=== PATIENT | female | born 1970 | race Caucasian/White ===

== ENCOUNTER 2016-07-25 11:48 | Observation (INO) | payer BC ==
--- NOTE | 2016-07-25 13:01 | PDOC ---
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 The patient is also complaining of intermittent numbness to her right arm for the past few days but denies any pain. She reports the numbness to her arm is not position based and comes and goes randomly. The patient denies any trauma or injury to her arm. She also c/o occ. R lower lip numbness that comes and goes randomly. The patient reports a headache, but denies neck pain The patient denies fever, chills The patient denies vomiting, diarrhea The patient denies chest pain, palpitations, SOB She denies any other complaints at this time, and the remainder the review of systems is negative Surgical: gastric bypass (2002) hernia removal (2003) Social: No toxic habits reported <SophynanySusanna - Last Filed: 07/25/16 13:06> <Cathie Curtis - Last Filed: 07/25/16 16:59> - General Chief Complaint: Lightheaded Stated Complaint: DIZZINESS, SYNCOPE, RT SIDE NUMBNESS Time Seen by Provider: 07/25/16 12:43 Past History <MargieSusanna - Last Filed: 07/25/16 13:58> - Past Medical History Anemia: Yes Cardiac Disorders: Yes (tachycardia) Diabetes: Yes (type II) - Surgical History Abdominal Surgery: Yes (tubal ligation abd hernia repair) GI Surgery: Yes (gastric bypass) - Immunization History Immunization Up to Date: Yes (no flu) - Psycho/Social/Smoking Cessation Hx Anxiety: No Suicidal Ideation: No Smoking History: Never smoked Have you smoked in the past 12 months: No Information on smoking cessation initiated: No Hx Alcohol Use: No Drug/Substance Use Hx: No Substance Use Type: None <Cathie Curtis - Last Filed: 07/25/16 16:59> - Past Medical History Allergies/Adverse Reactions: Allergies Allergy/AdvReac Type Severity Reaction Status Date / Time hydrocodone Allergy Rash Verified 07/25/16 11:50 Home Medications: Ambulatory Orders Cholecalciferol (Vitamin D3) [Vitamin D3 -] 400 unit PO DAILY 07/25/16 Folic Acid - 1 mg PO DAILY 07/25/16 Iron 18 mg PO DAILY 07/25/16 Metoprolol Tartrate [Lopressor -] 25 mg PO BID 07/25/16 Review of Systems - Review of Systems Able to Perform ROS?: Yes Comments:: 07/25/16 13:58 Remainder of the review of systems is negative - HPI 12 point review of systems is as per history of present illness and otherwise negative - ROS <Susanna Hanson - Last Filed: 07/25/16 13:58> *Physical Exam - Vital Signs Last Vital Signs Temp Pulse Resp BP Pulse Ox 97.9 F 104 H 20 128/86 99 07/25/16 11:52 07/25/16 11:52 07/25/16 11:52 07/25/16 11:52 07/25/16 11:52 <Susanna Hanson - Last Filed: 07/25/16 13:58> - Vital Signs Last Vital Signs Temp Pulse Resp BP Pulse Ox 97.9 F 104 H 20 128/86 99 07/25/16 11:52 07/25/16 11:52 07/25/16 11:52 07/25/16 11:52 07/25/16 11:52 - Physical Exam Comments: 07/25/16 13:03 Physical exam Last Vital Signs Temp Pulse Resp BP Pulse Ox 97.9 F 104 H 20 128/86 99 07/25/16 11:52 07/25/16 11:52 07/25/16 11:52 07/25/16 11:52 07/25/16 11:52 GENERAL: The patient is awake, alert, and fully oriented, and in no apparent distress. HEAD: Normal with no signs of trauma. EYES: Pupils equal, round and reactive to light, extraocular movements intact, sclera anicteric, conjunctiva are normal. No obvious nystagmus is noted ENT: nares patent, oropharynx clear without exudates. Moist mucous membranes. NECK: Normal range of motion, supple No C-spine tenderness Rapid change in head position reproduces the symptoms LUNGS: Breath sounds equal, clear to auscultation bilaterally. No wheezes, and no crackles. HEART: Regular rate and rhythm, normal S1 and S2 without murmur, rub or gallop. ABDOMEN: Soft, nontender, normoactive bowel sounds. No guarding, no rebound. No masses appreciated. EXTREMITIES: Normal range of motion, no edema. No clubbing or cyanosis. No cords, erythema, or tenderness. NEURO: Mental status: The patient is oriented x3. Cranial nerves: Cranial nerves II through XII are intact Motor: The upper extremities are 5 over 5 in all muscle groups. The lower extremities are 5 over 5 in all muscle groups. Sensation: Sensation is intact to light touch throughout. Mild decreased sensation in the right lower lip Cerebellar: Sestqh-tdlknk-ysby is normal in both upper extremities. Heel-knee- yoo is normal in both lower extremities. Gait: Normal gait PSYCH: Normal mood, normal affect. SKIN: Warm, Dry, <Cathie Curtis - Last Filed: 07/25/16 16:59> ED Treatment Course - LABORATORY CBC & Chemistry Diagram: 07/25/16 13:30 07/25/16 13:30 <Susanna Hanson - Last Filed: 07/25/16 13:58> - LABORATORY CBC & Chemistry Diagram: 07/25/16 13:30 07/25/16 13:30 <Cathie Curtis - Last Filed: 07/25/16 16:59> Medical Decision Making - Medical Decision Making 07/25/16 12:59 45-year-old female with a past medical history of tachycardia (SVT) on metoprolol, vitamin D deficiency, borderline DM, and iron folic and B 12 deficiency anemia She also has a prior gastric bypass in 2002, and has post bypass dumping syndrome, as well as a post yesterday bypass hernia repair in 2003 Patient complains of 3 days of episodes of nausea associated with episodes of vertigo off and on She states that occasionally her right lower lip feels numb, and her right arm feels numb, and this comes and goes, but not clearly related to the vertigo episodes She does admit to headache, but denies any neck pain She admits to nausea, but denies any vomiting or diarrhea She denies any fevers or chills She denies any recent intercurrent illnesses She denies any chest pain or palpitations She denies any other complaints at this time 07/25/16 15:17 Laboratory Results - last 24 hr 07/25/16 07/25/16 07/25/16 13:30 13:30 13:55 WBC 9.1 RBC 4.84 Hgb 9.3 L Hct 30.7 L MCV 63.3 L MCHC 30.3 L RDW 20.4 H Plt Count 435 H MPV 8.1 Sodium 140 Potassium 4.2 Chloride 104 Carbon Dioxide 27 Anion Gap 9 BUN 10 Creatinine 0.7 Creat Clearance w eGFR > 60 Random Glucose 90 Calcium 9.1 Magnesium 2.2 Total Bilirubin 0.3 AST 8 L ALT 16 Alkaline Phosphatase 114 Creatine Kinase 36 Troponin I < 0.02 Total Protein 7.5 Albumin 3.6 Urine HCG, Qual Negative Patient with a history of chronic anemia as noted due to folate, B-12, and iron deficiency, but she states that she usually runs in the 10.5-11 range and this is more anemic than usual She has not seen a primary care doctor recently, and has not had her B-12 shot or Fe or other primary care supplements ordered recently EKG Normal sinus rhythm 79, normal axis Normal AV and IV conduction time Normal QTC Normal EKG 07/25/16 16:40 CT scan of the head without-NAD 07/25/16 16:58 case d/w Dr Hannon - given the hx of arm numbness and lip numbness, will place in observation, get MRI and further Neuro w/u case d/w hospitalist - will admit obs <Cathie Curtis - Last Filed: 07/25/16 16:59> *DC/Admit/Observation/Transfer - Attestations Scribe Attestion: 07/25/16 13:06 Documentation prepared by Susanna Hanson, acting as medical billing supervisor for Cathie Curtis MD/DO. <Susanna Hanson - Last Filed: 07/25/16 13:58> - Discharge Dispostion Admit: Yes <Cathie Curtis - Last Filed: 07/25/16 16:59> Diagnosis at time of Disposition: Vertigo, Numbness
[2016-07-25] MEDS ORDERED: MECLIZINE HCL 25 MG TABLET (FP) PO ONE (13:02)
[2016-07-25] MEDS ORDERED: ONDANSETRON 4 MG/2 ML VIAL IVPB ONE (13:03)
[2016-07-25] MEDS ORDERED: ONDANSETRON 4 MG/2 ML VIAL ONE (13:24)
[2016-07-25] MEDS ORDERED: MECLIZINE HCL 25 MG TABLET (FP) ONE (13:24)
[2016-07-25 13:42] LABS: MCHC 30.3 g/dl (32.0-36.0); MEAN CELL VOLUME 63.3 fl (80-96); MEAN PLT VOLUME 8.1 fl (7.5-11.1); PLATELET COUNT 435 K/MM3 (134-434); RDW 20.4 % (11.6-15.6); WHITE BLOOD COUNT 9.1 K/mm3 (4.0-10.0)
[2016-07-25 13:48] LABS: MCH 19.2 pg (25.7-33.7)
[2016-07-25 14:08] LABS: ALBUMIN 3.6 g/dl (3.4-5.0); ANION GAP 9 (8-16); BILIRUBIN,TOTAL 0.3 mg/dL (0.2-1.0); CALCIUM 9.1 mg/dL (8.5-10.1); CO2 27 mmol/L (21-32); CREATININE 0.7 mg/dL (0.55-1.02); GLUCOSE,RANDOM 90 mg/dL (74-106); MAGNESIUM 2.2 mg/dL (1.8-2.4); SGOT/AST 8 U/L (15-37); SGPT/ALT 16 U/L (12-78); TOT PROT 7.5 g/dl (6.4-8.2)
[2016-07-25 14:11] LABS: ALK PHOS 114 U/L (45-117); TROPONIN I < 0.02 ng/ml (0.00-0.05)
[2016-07-25 15:38] LABS: ANISOCYTOSIS 2+; MICROCYTOSIS 3+
[2016-07-25 15:39] LABS: HYPOCHROMIA 1+
[2016-07-25 15:40] LABS: SPHEROCYTE 1+
--- NOTE | 2016-07-25 16:07 | EKG ---
Test Reason : Blood Pressure : / mmHG Vent. Rate : 079 BPM Atrial Rate : 079 BPM P-R Int : 134 ms QRS Dur : 070 ms QT Int : 390 ms P-R-T Axes : 053 011 032 degrees QTc Int : 447 ms NORMAL SINUS RHYTHM NORMAL ECG NO PREVIOUS ECGS AVAILABLE Confirmed by RADHA MOSS MD ([id number]) on 07/25/2016 4:06:54 PM Referred By: Confirmed By:RADHA MOSS MD
[2016-07-25] MEDS ORDERED: ACETAMINOPHEN 500 MG TABLET (FP) PO ONE (20:42)
--- NOTE | 2016-07-25 21:18 | HP ---
CHIEF COMPLAINT: dizziness/nausea PCP: none HISTORY OF PRESENT ILLNESS: This is a 45 year old female with a past medical history of SVT, vitamin D deficiency, borderline DM, iron, folic acid and B12 deficiency related to gastric bypass who presented to the ED with a complaint of nausea and dizziness x 3 days with intermittent vertigo and sensation of the room spinning. She also reports intermittent right arm and right lower lip numbness intermittently. The arm and lip numbness does not seem to correlate with the dizziness and has been occurring for approximately one month. The patient does report headache associated with the dizziness. ER course was notable for: (1) unremarkable head CT (2) dizziness improved with zofran and meclizine Recent Travel: none PAST MEDICAL HISTORY: SVT vitamin D deficiency borderline DM iron, folic acid and B12 deficiency related to gastric bypass cervical disc herniation, pt thinks maybe C2 Lumbar disc herniation PAST SURGICAL HISTORY: Gastric bypass 2002 tubal ligation hernia r/t gastric bypass repair 2003 Social History: Smoking: pt denies Alcohol: pt denies Drugs: pt denies Family History: mother alive with heart problems, ?maybe [place] father alive and well pat grandmother CVA in her 70s mat grandmother CVA and MO in her 70s Allergies hydrocodone Allergy (Verified 07/25/16 11:50) Rash HOME MEDICATIONS: 3 Medication Instructions Recorded Cholecalciferol (Vitamin D3) 400 unit PO DAILY 07/25/16 [Vitamin D3 -] Folic Acid - 1 mg PO DAILY 07/25/16 Iron 18 mg PO DAILY 07/25/16 Metoprolol Tartrate [Lopressor -] 25 mg PO BID 07/25/16 REVIEW OF SYSTEMS CONSTITUTIONAL: Absent: fever, chills, diaphoresis, generalized weakness, malaise, loss of appetite, weight change HEENT: Absent: rhinorrhea, nasal congestion, throat pain, throat swelling, difficulty swallowing, mouth swelling, ear pain, eye pain, visual changes CARDIOVASCULAR: Absent: chest pain, syncope, palpitations, irregular heart rate, lightheadedness , peripheral edema RESPIRATORY: Absent: cough, shortness of breath, dyspnea with exertion, orthopnea, wheezing, stridor, hemoptysis GASTROINTESTINAL: Present: nausea Absent: abdominal pain, abdominal distension, vomiting, diarrhea, constipation, melena, hematochezia GENITOURINARY: Absent: dysuria, frequency, urgency, hesitancy, hematuria, flank pain, genital pain MUSCULOSKELETAL: Absent: myalgia, arthralgia, joint swelling, back pain, neck pain SKIN: Absent: rash, itching, pallor HEMATOLOGIC/IMMUNOLOGIC: Absent: easy bleeding, easy bruising, lymphadenopathy, frequent infections ENDOCRINE: Absent: unexplained weight gain, unexplained weight loss, heat intolerance, cold intolerance NEUROLOGIC: Present: headache, dizziness, arm and facial numbness Absent: focal weakness or paresthesias, unsteady gait, seizure, mental status changes, bladder or bowel incontinence PSYCHIATRIC: Absent: anxiety, depression, suicidal or homicidal ideation, hallucinations. PHYSICAL EXAMINATION Vital Signs - 24 hr 3 07/25/16 07/25/16 11:52 17:25 Temperature 97.9 F 98.4 F Pulse Rate 104 H Pulse Rate [ 90 Right] Respiratory 20 16 Rate Blood Pressure 128/86 Blood Pressure 117/72 [Arm] O2 Sat by Pulse 99 99 Oximetry (%) GENERAL: Awake, alert, and fully oriented, in no acute distress. HEAD: Normal with no signs of trauma. EYES: Pupils equal, round and reactive to light, extraocular movements intact, sclera anicteric, conjunctiva clear. No lid lag. EARS, NOSE, THROAT: Ears normal, nares patent, oropharynx clear without exudates. Moist mucous membranes. NECK: Normal range of motion, supple without lymphadenopathy, JVD, or masses. LUNGS: Breath sounds equal, clear to auscultation bilaterally. No wheezes, and no crackles. No accessory muscle use. HEART: Regular rate and rhythm, normal S1 and S2 without murmur, rub or gallop. ABDOMEN: Soft, nontender, not distended, normoactive bowel sounds, no guarding, no rebound, no masses. No hepatomegaly or splenomegaly. MUSCULOSKELETAL: Normal range of motion at all joints. No bony deformities or tenderness. No CVA tenderness. UPPER EXTREMITIES: 2+ pulses, warm, well-perfused. No cyanosis. No clubbing. Cap refill <2 seconds. No peripheral edema. LOWER EXTREMITIES: 2+ pulses, warm, well-perfused. No calf tenderness. No peripheral edema. NEUROLOGICAL: Cranial nerves II-XII intact. Normal speech. Normal gait. no nystagmus or dizziness on linnea-hallpike maneuver. Muscle strength 5/5 all extremities. light touch sensation intact all extremities PSYCHIATRIC: Cooperative. Good eye contact. Appropriate mood and affect. SKIN: Warm, dry, normal turgor, no rashes or lesions noted. Laboratory Results - last 24 hr 3 07/25/16 07/25/16 07/25/16 13:30 13:30 13:55 WBC 9.1 RBC 4.84 Hgb 9.3 L Hct 30.7 L MCV 63.3 L MCHC 30.3 L RDW 20.4 H Plt Count 435 H MPV 8.1 Hypochromic-Microcytic 1+ Anisocytosis 2+ Microcytosis 3+ Spherocytes 1+ Sodium 140 Potassium 4.2 Chloride 104 Carbon Dioxide 27 Anion Gap 9 BUN 10 Creatinine 0.7 Creat Clearance w eGFR > 60 Random Glucose 90 Calcium 9.1 Magnesium 2.2 Total Bilirubin 0.3 AST 8 L ALT 16 Alkaline Phosphatase 114 Creatine Kinase 36 Troponin I < 0.02 Total Protein 7.5 Albumin 3.6 Urine HCG, Qual Negative Head CT: Impression: No evidence of acute intracranial hemorrhage, edema, midline shift, mass effect or skull fracture. No CT evidence of acut territorial infarction. ECG: NSR, rate 79, no ST/T changes ASSESSMENT/PLAN: 45yF with PMH of SVT, vitamin D deficiency, borderline DM, iron, folic acid and B12 deficiency related to gastric bypass presented with dizziness and nausea. She is being admitted for further workup and observation. Dizziness - MRI brain done, results pending - neurology consult - likely related to vertigo. Trial of meclizine Arm and lip numbness/parasthesia - consider MRI cspine - neurology consult - CT head negative, unlikely acute CVA given length of time of symptoms and intermittent nature. Anemia (B12, iron and folate) - cont home supplements - b12 and folate levels - B12 injection in AM after B12 level, pt states last received over 1 year ago SVT - cont home metoprolol; asymptomatic with same FEN - no IVF, pt tolerating po - repeat bmp in am, stable at present - regular diet. Dispo: Pt currently requires inpatient observation for her emergent condition. Visit type - Emergency Visit Emergency Visit: Yes ED Registration Date: 07/25/16 Care time: The patient presented to the Emergency Department on the above date and was hospitalized for further evaluation of their emergent condition. - New Patient This patient is new to me today: Yes Date on this admission: 07/25/16 - Critical Care Critical Care patient: No
[2016-07-25] MEDS: METOPROLOL TARTRATE 25 MG TABLET (FP) PO SCH (21:23)
[2016-07-25] MEDS: MECLIZINE HCL 25 MG TABLET (FP) PO PRN (21:34)
[2016-07-25 23:55] VITALS: BMI 47.0
[2016-07-26 07:22] LABS: BASOPHIL 0.7 % (0-2.0); EOSINOPHIL 2.2 % (0-4.5); MCHC 31.2 g/dl (32.0-36.0); MEAN CELL VOLUME 62.8 fl (80-96); MEAN PLT VOLUME 9.1 fl (7.5-11.1); NEUTROPHILS 48.5 % (42.8-82.8); PLATELET COUNT 386 K/MM3 (134-434); RDW 20.7 % (11.6-15.6); WHITE BLOOD COUNT 6.1 K/mm3 (4.0-10.0)
[2016-07-26 07:33] LABS: MCH 19.6 pg (25.7-33.7)
[2016-07-26 07:41] LABS: CALCIUM 8.5 mg/dL (8.5-10.1); CREATININE 0.7 mg/dL (0.55-1.02); PHOSPHOROUS 3.4 mg/dL (2.5-4.9)
[2016-07-26 08:37] VITALS: BP 100/63; PULSE 87; TEMP 97.9
[2016-07-26] MEDS ORDERED: CYANOCOBALAMIN (VITAMIN B-12) 1000 MCG/1 ML VIAL IM ONE (10:00)
[2016-07-26] MEDS ORDERED: FOLIC ACID 1 MG TABLET (FP) PO SCH (10:00)
[2016-07-26] MEDS ORDERED: FERROUS SO4 325 MG TABLET (FP) PO SCH (10:00)
[2016-07-26] MEDS ORDERED: CHOLECALCIFEROL (VITAMIN D3) 400 UNIT TABLET (FP) PO SCH (10:00)
--- NOTE | 2016-07-26 10:03 | DS ---
Physical Exam: SUBJECTIVE: Patient seen and examined OBJECTIVE: Vital Signs Period Temp Pulse Resp BP Sys/Gonzalez Pulse Ox Last 24 Hr 97.9 F-98.7 F 81-120 18-20 90-118/47-74 99-100 PHYSICAL EXAM GENERAL: The patient is awake, alert, and fully oriented, in no acute distress. HEAD: Normal with no signs of trauma. EYES: PERRL, extraocular movements intact, sclera anicteric, conjunctiva clear. ENT: Ears normal, nares patent, oropharynx clear without exudates, moist mucous membranes. NECK: Trachea midline, full range of motion, supple. LUNGS: Breath sounds equal, clear to auscultation bilaterally, no wheezes, no crackles, no accessory muscle use. HEART: Regular rate and rhythm, S1, S2 without murmur, rub or gallop. ABDOMEN: Soft, nontender, nondistended, normoactive bowel sounds, no guarding, no rebound, no hepatosplenomegaly, no masses. EXTREMITIES: 2+ pulses, warm, well-perfused, no edema. NEUROLOGICAL: Cranial nerves II through XII grossly intact. Normal speech, gait not observed. PSYCH: Normal mood, normal affect. SKIN: Warm, dry, normal turgor, no rashes or lesions noted. LABS Laboratory Results - last 24 hr 07/26/16 07/26/16 07/26/16 06:00 06:00 06:00 WBC 6.1 D RBC 4.44 Hgb 8.7 L Hct 27.9 L MCV 62.8 L MCHC 31.2 L RDW 20.7 H Plt Count 386 MPV 9.1 D Neutrophils % 48.5 Lymphocytes % 41.4 H Monocytes % 7.2 Eosinophils % 2.2 Basophils % 0.7 Sodium 139 Potassium 4.0 Chloride 102 Carbon Dioxide 27 Anion Gap 10 BUN 14 D Creatinine 0.7 POC Glucometer Random Glucose 94 Calcium 8.5 Phosphorus 3.4 Vitamin B12 326 Serum Folate 13 07/26/16 07:16 WBC RBC Hgb Hct MCV MCHC RDW Plt Count MPV Neutrophils % Lymphocytes % Monocytes % Eosinophils % Basophils % Sodium Potassium Chloride Carbon Dioxide Anion Gap BUN Creatinine POC Glucometer 96 Random Glucose Calcium Phosphorus Vitamin B12 Serum Folate HOSPITAL COURSE: Date of Admission:07/25/16 Date of Discharge: 07/26/16 Pre hospital course This is a 45 year old female with a past medical history of SVT, vitamin D deficiency, borderline DM, iron, folic acid and B12 deficiency related to gastric bypass who presented to the ED with a complaint of nausea and dizziness x 3 days with intermittent vertigo and sensation of the room spinning. She also reports intermittent right arm and right lower lip numbness intermittently. The arm and lip numbness does not seem to correlate with the dizziness and has been occurring for approximately one month. The patient does report headache associated with the dizziness. ER course (1) CT head unremarkable (2) dizziness improved with zofran and meclizine Subsequent hospital course Patient asymptomatic this morning. Seen and evaluated by neurology. MRI completed and reviewed and without acute changes. Neuropathic sensations may be cervical radiculopathy and would benefit from EMG outpatient. Patient also with sleep difficulty and may benefit from sleep study. Will follow up as outpatient with Dr. Hannon. Minutes to complete discharge: 35 Discharge Summary Reason For Visit: NUMBNESS; VERTIGO Current Active Problems Numbness (Acute) Vertigo (Acute) - Instructions Diet, Activity, Other Instructions: A prescription for meclizine has been sent to your pharmacy. You should take this medication as directed for dizziness. You should NOT be driving a motor vehicle while taking this medication. Return to the emergency department for any new or worsening symptoms. Referrals: Hong Jimenez MD [Staff Physician] - 2 Weeks Josue Hannon MD [Staff Physician] - Disposition: HOME - Home Medications Comprehensive Discharge Medication List: Ambulatory Orders Cholecalciferol (Vitamin D3) [Vitamin D -] 400 unit PO DAILY 07/25/16 Folic Acid - 1 mg PO DAILY 07/25/16 Iron 18 mg PO DAILY 07/25/16 Metoprolol Tartrate [Lopressor -] 25 mg PO BID 07/25/16 Meclizine HCl [Antivert -] 25 mg PO Q6H PRN #10 tablet 07/26/16 This patient is new to me today: Yes Date on this admission: 07/26/16 Emergency Visit: Yes ED Registration Date: 07/25/16 Care time: The patient presented to the Emergency Department on the above date and was hospitalized for further evaluation of their emergent condition. Critical Care patient: No - Discharge Referral Referred to [facility] Yes Physician Referral: Hong Anderson MD ([facility])
--- NOTE | 2016-07-26 10:32 | CONSULT ---
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 The patient was also complaining of intermittent numbness to her right arm for the past few days but denies any pain. I spoke with Dr. Ordonez yesterday and the patient had CT head which showed no acute changes. Decided to admit for MRI brain as she has SVT and rule out posterior CVA. MRI completed and reviewed and without acute changes. Neuropathic sensations may be cervical radic and would benefit from EMG outpatient. Patient also with sleep difficulty and may benefit from sleep study. - General Chief Complaint: Lightheaded Stated Complaint: DIZZINESS, SYNCOPE, RT SIDE NUMBNESS Time Seen by Provider: 07/25/16 12:43 Past History - Past Medical History Anemia: Yes Cardiac Disorders: Yes (tachycardia) Diabetes: Yes (type II) - Surgical History Abdominal Surgery: Yes (tubal ligation abd hernia repair) GI Surgery: Yes (gastric bypass) - Immunization History Immunization Up to Date: Yes (no flu) - Psycho/Social/Smoking Cessation Hx Anxiety: No Suicidal Ideation: No Smoking History: Never smoked Have you smoked in the past 12 months: No Information on smoking cessation initiated: No Hx Alcohol Use: No Drug/Substance Use Hx: No Substance Use Type: None - Past Medical History Allergies/Adverse Reactions: Allergies Allergy/AdvReac Type Severity Reaction Status Date / Time hydrocodone Allergy Rash Verified 07/25/16 11:50 Home Medications: Ambulatory Orders Cholecalciferol (Vitamin D3) [Vitamin D3 -] 400 unit PO DAILY 07/25/16 Folic Acid - 1 mg PO DAILY 07/25/16 Iron 18 mg PO DAILY 07/25/16 Metoprolol Tartrate [Lopressor -] 25 mg PO BID 07/25/16 Review of Systems Remainder of the review of systems is negative - HPI 12 point review of systems is as per history of present illness and otherwise negative - ROS *Physical Exam - Vital Signs Last Vital Signs Temp Pulse Resp BP Pulse Ox 97.9 F 104 H 20 128/86 99 07/25/16 11:52 07/25/16 11:52 07/25/16 11:52 07/25/16 11:52 07/25/16 11:52 GENERAL: The patient is awake, alert, and fully oriented, and in no apparent distress. HEAD: Normal with no signs of trauma. EYES: Pupils equal, round and reactive to light, extraocular movements intact, sclera anicteric, conjunctiva are normal. No obvious nystagmus is noted ENT: nares patent, oropharynx clear without exudates. Moist mucous membranes. NECK: Normal range of motion, supple No C-spine tenderness Rapid change in head position reproduces the symptoms LUNGS: Breath sounds equal, clear to auscultation bilaterally. No wheezes, and no crackles. HEART: Regular rate and rhythm, normal S1 and S2 without murmur, rub or gallop. ABDOMEN: Soft, nontender, normoactive bowel sounds. No guarding, no rebound. No masses appreciated. EXTREMITIES: Normal range of motion, no edema. No clubbing or cyanosis. No cords, erythema, or tenderness. NEURO: Mental status: The patient is oriented x3. Cranial nerves: Cranial nerves II through XII are intact Motor: The upper extremities are 5 over 5 in all muscle groups. The lower extremities are 5 over 5 in all muscle groups. Sensation: Sensation is intact to light touch throughout. Mild decreased sensation in the right lower lip Cerebellar: Uyrxvc-odloyr-hjrn is normal in both upper extremities. Heel-knee- yoo is normal in both lower extremities. Gait: Normal gait PSYCH: Normal mood, normal affect. SKIN: Warm, Dry, CBCD WBC 6.1 K/mm3 (4.0-10.0) D 07/26/16 06:00 RBC 4.44 M/mm3 (3.60-5.2) 07/26/16 06:00 Hgb 8.7 GM/dL (10.7-15.3) L 07/26/16 06:00 Hct 27.9 % (32.4-45.2) L 07/26/16 06:00 MCV 62.8 fl (80-96) L 07/26/16 06:00 MCHC 31.2 g/dl (32.0-36.0) L 07/26/16 06:00 RDW 20.7 % (11.6-15.6) H 07/26/16 06:00 Plt Count 386 K/MM3 (134-434) 07/26/16 06:00 MPV 9.1 fl (7.5-11.1) D 07/26/16 06:00 CMP Sodium 139 mmol/L (136-145) 07/26/16 06:00 Potassium 4.0 mmol/L (3.5-5.1) 07/26/16 06:00 Chloride 102 mmol/L (98-107) 07/26/16 06:00 Carbon Dioxide 27 mmol/L (21-32) 07/26/16 06:00 Anion Gap 10 (8-16) 07/26/16 06:00 BUN 14 mg/dL (7-18) D 07/26/16 06:00 Creatinine 0.7 mg/dL (0.55-1.02) 07/26/16 06:00 Creat Clearance w eGFR > 60 (>60) 07/25/16 13:30 Calcium 8.5 mg/dL (8.5-10.1) 07/26/16 06:00 Total Bilirubin 0.3 mg/dL (0.2-1.0) 07/25/16 13:30 AST 8 U/L (15-37) L 07/25/16 13:30 ALT 16 U/L (12-78) 07/25/16 13:30 Alkaline Phosphatase 114 U/L (45-117) 07/25/16 13:30 Total Protein 7.5 g/dl (6.4-8.2) 07/25/16 13:30 Albumin 3.6 g/dl (3.4-5.0) 07/25/16 13:30 Imaging: CT head reviewed MRI brain reviewed Plan: 45 year old female with a past medical hx of tachycardia (SVT) on metoprolol, vitamin D deficiency, borderline DM, and 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 The patient was also complaining of intermittent numbness to her right arm for the past few days but denies any pain. I spoke with Dr. Ordonez yesterday and the patient had CT head which showed no acute changes. Decided to admit for MRI brain as she has SVT and rule out posterior CVA. MRI completed and reviewed and without acute changes. Neuropathic sensations may be cervical radic and would benefit from EMG outpatient. Patient also with sleep difficulty and may benefit from sleep study. Will follow up as outpatient. Doing well today and at baseline.
[2016-07-26] MEDS: METOPROLOL TARTRATE 25 MG TABLET (FP) PO SCH (10:54)
[2016-07-26] MEDS: MECLIZINE HCL 25 MG TABLET (FP) PO PRN (11:45)
== END 2016-07-26 12:59 | disposition home or self-care (01) ==
LOC: JER 11:48 → JERBED 17:27 → J7W 19:45
PROVIDERS: ADMIT Internal Medicine; ATTEND Nurse Practitioner Acute Care
DX: R42 Dizziness and giddiness (principal); R20.0 Anesthesia of skin; E55.9 Vitamin D deficiency, unspecified; D51.9 Vitamin B12 deficiency anemia, unspecified; Z98.84 Bariatric surgery status; M51.26 Other intervertebral disc displacement, lumbar region; I47.1 Supraventricular tachycardia
CPT/HCPCS: 36415; 70450-TC; 70551-TC; 80048; 80053; 82550; 82607; 82746; 83735; 84100; 84484; 84703; 85025; 85027; 93005; 93010; 99285-25; G0378

== ENCOUNTER 2017-06-25 09:52 | Emergency (ER) | payer OTHER, BC ==
[2017-06-25 10:00] VITALS: PULSE 80; TEMP 98.2; BMI 45.3
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
[2017-06-25] MEDS ORDERED: ACETAMINOPHEN 500 MG TABLET (FP) PO ONE (10:26)
[2017-06-25] MEDS ORDERED: ACETAMINOPHEN 325 MG TABLET (FP) ONE (10:44)
[2017-06-25] MEDS ORDERED: CYCLOBENZAPRINE HCL 10 MG TABLET (FP) PO ONE (14:06)
[2017-06-25] MEDS ORDERED: IBUPROFEN 400 MG TABLET (FP) PO ONE ×2 (14:06→14:29)
[2017-06-25] MEDS ORDERED: CYCLOBENZAPRINE HCL 10 MG TABLET (FP) ONE (14:29)
[2017-06-25 14:38] VITALS: BP 130/70
== END 2017-06-25 14:38 | disposition home or self-care (01) ==
LOC: JER 09:52
DX: S13.4XXA Sprain of ligaments of cervical spine, initial encounter (principal); V47.5XXA Car driver injured in collision with fixed or stationary object in traffic accident, initial encounter; Y92.414 Local residential or business street as the place of occurrence of the external cause; Y93.89 Activity, other specified; Y99.8 Other external cause status
CPT/HCPCS: 72125-TC; 73562-TC-LT; 73590-TC-LT; 84703; 99281-25

== ENCOUNTER 2019-07-07 15:49 | Inpatient (IN) | payer BC, OTHER ==
--- NOTE | 2019-07-07 16:10 | PDOC ---
Rapid Medical Evaluation Time Seen by Provider: 07/07/19 16:08 Medical Evaluation: Allergies Allergy/AdvReac Type Severity Reaction Status Date / Time hydrocodone Allergy Rash Verified 07/07/19 16:07 07/07/19 16:09 CC: sent for symptomatic anemia PE: HR- 116. +pallor Orders: Anemia w/u Patient will proceed to the ED for further evaluation. Discharge Disposition - Diagnosis Anemia - Referrals - Patient Instructions - Post Discharge Activity
[2019-07-07 16:12] VITALS: BMI 39.4
--- NOTE | 2019-07-07 17:38 | PDOC ---
History of Present Illness - General Chief Complaint: Lightheaded Stated Complaint: ANEMIC Time Seen by Provider: 07/07/19 16:08 - History of Present Illness Initial Comments: Natalie Worrell is a 48yo woman with a PMH of SVT, vitamin D deficiency, borderline DM, iron, folic acid and B12 deficiency s/p kia-en-y gastric bypass approximately 20 years ago, who presents reporting anemia after routine labs. She states that she had lost her insurance for over a year, and she recently went to re-establish care with a PMD. She had labs ordered at her initial appointment and was told that her hgb was 6, so she came to the ED for evaluation. She reports that she has a long history of anemia due to her gastric surgery and is on "a multivitamin" daily. She does not know if she has iron supplements. Ms Worrell does report long-standing fatigue, pallor, sensation of her heart racing, and FOWLER but these have not changed significantly over the past days or weeks. She denies any other symptoms, chest pain, difficulty breathing, fever/chills, current bleeding including heavy menstruation, melena, hematochezia, easy bruising, or other bleeding. Past History - Past Medical History Allergies/Adverse Reactions: Allergies Allergy/AdvReac Type Severity Reaction Status Date / Time hydrocodone Allergy Rash Verified 07/07/19 16:07 Home Medications: Ambulatory Orders Metoprolol Tartrate [Lopressor -] 50 mg PO TID 07/25/16 Diltiazem HCl [Diltiazem ER] 120 mg PO DAILY 07/07/19 Anemia: Yes Asthma: No Cancer: No Cardiac Disorders: Yes (tachycardia) CVA: No COPD: No CHF: No Dementia: No Diabetes: Yes (type II) GI Disorders: No Disorders: No HTN: No Hypercholesterolemia: No Liver Disease: No Seizures: No Thyroid Disease: No - Surgical History Abdominal Surgery: Yes (tubal ligation abd hernia repair) Appendectomy: No Cardiac Surgery: No Cholecystectomy: No GI Surgery: Yes (gastric bypass) Lung Surgery: No Neurologic Surgery: No Orthopedic Surgery: No - Immunization History Immunization Up to Date: (no flu) - Psycho Social/Smoking Cessation Hx Smoking History: Never smoked Have you smoked in the past 12 months: No Hx Alcohol Use: No Drug/Substance Use Hx: No Substance Use Type: None Hx Substance Use Treatment: No Review of Systems - Review of Systems Comments:: General: No fevers, no chills, no weight or appetite change, no malaise, + chronic fatigue HEENT: No changes in vision, no changes in hearing, no congestion, no sore throat CV: No chest pain, +no palpitations, no LE edema, +FOWLER Pulm: + occasional SOB, no cough, no wheezing GI: No nausea or vomiting, no change in bowel habits, no melena : No frequency, no urgency, no dysuria Musc: No back pain, no joint swelling, no recent injury Skin: No rash, no lesions, no erythema Endo: No excessive thirst, no heat/cold intolerance Heme: No unusual bruising or bleeding, no swollen glands Neuro: No syncope, no numbness/tingling, no focal weakness Vasc: No claudication Psych: No recent change in mood, no SI or HI *Physical Exam - Vital Signs Last Vital Signs Temp Pulse Resp BP Pulse Ox 98.2 F 112 H 16 120/63 100 07/07/19 16:08 07/07/19 16:08 07/07/19 16:08 07/07/19 16:08 07/07/19 16:08 - Physical Exam General: Comfortable, no acute distress HEENT: Atraumatic, PERRL, EOMI, pale conjunctiva, MMM, voice normal, normal neck ROM Cards: RRR, no murmur appreciated Pulm: Comfortable on room air, clear to auscultation bilaterally Abd: Soft, nontender, nondistended Ext: Atraumatic. No LE edema. ROM intact. WWP Skin: Pale, no rashes or lesions Neuro: A&Ox3, CN grossly intact, normal speech, motor/sensory grossly intact and symmetric Psych: Mood appropriate to situation ED Treatment Course - LABORATORY CBC & Chemistry Diagram: 07/07/19 16:31 07/07/19 16:31 Medical Decision Making - Medical Decision Making 07/07/19 17:38 Natalie Worrell is a 48yo woman with a PMH of SVT, vitamin D deficiency, borderline DM, iron, folic acid and B12 deficiency s/p kia-en-y gastric bypass approximately 20 years ago, who presents reporting anemia to hgb 6 after routine labs. She reports having been off of her home medications for approximately the past year. - Most likely anemia secondary to iron, folate, and B12 deficiency. Unclear whether pt has been taking needed supplements as she reports a multivitamin only - Lab results from PMD presented w/ pt. Hgb 6.09, w/ iron studies completed showing iron deficiency - CBC, CMP, T&S - Plan to transfuse 07/07/19 18:19 - Labs notable for hgb 6.9 - pRBCs ordered in RME, additinoal T&S to be repeated prior to transfusion - Discussed risks and benefits at length, pt consented for transfusion after all questions were answered 07/07/19 21:29 - Microblog sent for admission 07/07/19 21:39 - Pt endorsed to Dr Fuad Lorenzo for the remainder of her care. Will be admitted to Dr Donis's service Discussed with Dr Cira Salgado PGY2 Discharge - Discharge Information Problems reviewed: Yes Clinical Impression/Diagnosis: Anemia Qualifiers: Anemia type: iron deficiency Iron deficiency anemia type: other iron deficiency Qualified Code(s): D50.8 - Other iron deficiency anemias Condition: Stable - Admission Yes - Follow up/Referral - Patient Discharge Instructions - Post Discharge Activity
[2019-07-07 17:53] LABS: BASO % 0.6 % (0-2.0); EOS % 0.2 % (0-4.5); HEMATOCRIT 23.4 % (32.4-45.2); LYMPH % 22.6 % (8-40); MCHC 27.9 g/dl (32.0-36.0); MEAN CELL VOLUME 56.9 fl (80-96); MEAN PLT VOLUME 9.4 fl (7.5-11.1); MONO % 6.6 % (3.8-10.2); PLATELET COUNT 511 K/MM3 (134-434); RBC 4.12 M/mm3 (3.60-5.2); RDW 21.8 % (11.6-15.6); WHITE BLOOD COUNT 7.3 K/mm3 (4.0-10.0)
[2019-07-07 17:56] LABS: ALBUMIN 3.7 g/dl (3.4-5.0); BILIRUBIN,TOTAL 0.2 mg/dL (0.2-1); BLOOD UREA NITROGEN 15.6 mg/dL (7-18); CALCIUM 9.8 mg/dL (8.5-10.1); CREATININE 0.6 mg/dL (0.55-1.3); POTASSIUM 4.1 mmol/L (3.5-5.1); TOT PROT 7.5 g/dl (6.4-8.2)
[2019-07-07 17:58] LABS: MCH 15.9 pg (25.7-33.7)
[2019-07-07 17:59] LABS: HEMOGLOBIN 6.5 GM/dL (10.7-15.3); IRON SERUM 10 ug/dL (50-175); TOTAL IRON BINDING CAPACITY 606 ug/dL (250-450)
--- NOTE | 2019-07-07 18:20 | PDOC ---
Attending Attestation - Resident Resident Name: Ana Maria Salgado - ED Attending Attestation I have performed the following: I have examined & evaluated the patient, The case was reviewed & discussed with the resident, I agree w/resident's findings & plan - HPI HPI: 07/09/19 07:28 48yo woman with a PMH of SVT, vitamin D deficiency, borderline DM, iron, folic acid and B12 deficiency s/p kia-en-y gastric bypass approximately 20 years ago , who presents reporting anemia after routine labs. PMD routine labs with hgb was 6, so she came to the ED for evaluation. She reports that she has a long history of anemia due to her gastric surgery and is on "a multivitamin" daily. She does not know if she has iron supplements. +chronic fatigue, pallor, sensation of her heart racing, and FOWLER but these have not changed significantly over the past days or weeks. She denies any other symptoms, chest pain, difficulty breathing, fever/chills, current bleeding including heavy menstruation, melena, hematochezia, easy bruising, or other bleeding. - Physicial Exam PE: 07/07/19 18:19 Agree with the resident's HPI and PE as documented in the electronic medical record. NAD, EOMI, PERRL, pale conjunctiva, anicteric; neck supple. lungs clear, + tachycardia. abdomen soft nontender. no rebound, guarding. Back nontender. COBIAN x4, no focal neuro deficits. No peripheral edema. normal color for ethnicity, WWP. 07/09/19 07:29 - Medical Decision Making 07/07/19 18:19 Vital Signs Temp Pulse Resp BP Pulse Ox 98.2 F 112 H 16 120/63 100 07/07/19 16:08 07/07/19 16:08 07/07/19 16:08 07/07/19 16:08 07/07/19 16:08 Vital signs notable for tachycardia, afebrile hemodynamically appropriate, Acute anemia is noted with hemoglobin 6.5, hematocrit 23.4, known history of acute on chronic anemia requiring previous iron infusions and transfusion, no WBC count. Iron studies are sent consistent with microcytic anemia process, will transfuse 2 units of blood, admission 07/07/19 18:19
[2019-07-07 18:25] LABS: LDH 194 U/L (84-246)
[2019-07-07] MEDS ORDERED: ACETAMINOPHEN 325 MG TABLET (FP) PO ONE (20:48)
[2019-07-07] MEDS ORDERED: ACETAMINOPHEN 325 MG TABLET (FP) ONE (20:58)
[2019-07-07 22:19] LABS: ANISOCYTOSIS 3+; MACROCYTOSIS 0; PLATELET ESTIMATE INCREASED; TARGET CELLS 1+; TEAR DROP CELLS 1+
[2019-07-07 22:40] LABS: OVALOCYTE 1+; ROULEAU 1+
--- NOTE | 2019-07-07 22:54 | PN ---
Teaching Attending Note Name of Resident: Zhou Rodrigues ATTENDING PHYSICIAN STATEMENT I saw and evaluated the patient. I reviewed the resident's note and discussed the case with the resident. I agree with the resident's findings and plan as documented. SUBJECTIVE: Patient is a 48 year old woman with a PMH of SVT, Vitamin D deficiency, Borderline DM, Iron/folic acid/Vitamin B12 deficiencies and Cee-en-y gastric bypass approximately 20 years ago, who presents anemia noted on routine labs. She states that she had lost her insurance for over a year, and she recently went to re-establish care with a PMD. She had labs ordered at her initial appointment and was told that her hemoglobin 6 g/dL. She reports that she has a long history of anemia due to her gastric surgery and is on "a multivitamin" daily. She does not know if she has iron supplements. Reports long-standing fatigue, pallor, sensation of her heart racing, and FOWLER but these have not changed significantly over the past days or weeks. She denies chest pain, fever/ chills, current bleeding including heavy menstruation, melena, hematochezia, easy bruising, or other bleeding. Denies alcohol, tobacco or illicit drug use. No sick contacts or recent travels. Did not get the Flu vaccination. Currently on her menstrual period and her periods are heavy. OBJECTIVE: Alert Vital Signs Period Temp Pulse Resp BP Sys/Gonzalez Pulse Ox Last 24 Hr 98 F-98.7 F 90-112 16-19 102-131/49-85 99-100 HEENT: No Jaundice, eye redness or discharge, PERRLA, EOMI. +Pallor; Normocephalic, atraumatic. External ears are normal and hearing is grossly intact. No nasal discharge. Neck: Supple, nontender. No palpable adenopathy or thyromegaly. No JVD Chest: Good effort. Clear to auscultation and percussion. Heart: Regular. No S3, rub or murmur Abdomen: Not distended, soft, nontender and no HSM. No rebound or guarding. Normal bowel sounds. Ext: Peripheral pulses intact. Leg edema. Skin: Warm and dry. No petechiae, rash or ecchymosis. Neuro: Alert. Oriented x3. CN 2-12 grossly intact. Sensation grossly intact in all four extremities and DTR are symmetric. Psych: Appropriate mood and affect. Good insight. Home Medications Medication Instructions Recorded Metoprolol Tartrate [Lopressor -] 50 mg PO TID 07/25/16 Diltiazem HCl [Diltiazem ER] 120 mg PO DAILY 07/07/19 Abnormal Lab Results 07/07/19 07/07/19 07/07/19 16:31 16:31 16:31 Hgb 6.5 L* Hct 23.4 L D MCV 56.9 L MCH 15.9 L D MCHC 27.9 L RDW 21.8 H Plt Count 511 H D Retic Count Anion Gap 7 L Iron 10 L TIBC 606 H Iron Saturation 1 L Unsaturated IBC 596 H Ferritin 2.6 L AST 13 L Crossmatch 07/07/19 07/07/19 07/07/19 16:31 16:31 18:45 Hgb Hct MCV MCH MCHC RDW Plt Count Retic Count 1.87 H Anion Gap Iron TIBC Iron Saturation Unsaturated IBC Ferritin AST Crossmatch See Detail See Detail ASSESSMENT AND PLAN: 1. Symptomatic anemia - Likely multifactorial including nutritional deficiency, poor absorption and menorrhagia. Has confirmed severe iron deficiency. Will benefit from IV iron supplementation possibly as outpatient - after current PRBC transfusion. Do serial stool guaiacs. Consult GI for colonoscopy and continue supplementation with Vitamin B12 and folate. DAIRY CHEMIST consult. EKG shows sinus tachycardia at 104, LAE and nonspecific T wave abnormalities. Will get BNP and ECHO. Will continue comprehensive care for all of patients comorbid conditions. 2. Borderline DM Will implement sliding scale insulin regimen. Provide comprehensive diabetes care with patient teaching and counseling about the importance of adherence to prescribed diabetes regimen, euglycemia, eye care and foot care. 3. Obesity Counseled on the risks associated with obesity. Will provide patient all the necessary assistance, counseling and positive reinforcement to facilitate weight loss. Consult welfare manager. 4. DVT prophylaxis - Lovenox 40 mg SQ q 12 hours. 5. Advance directives - Full code
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
[2019-07-08 00:14] LABS: INR 0.99 (0.83-1.09); PROTHROMBIN TIME (PATIENT) 11.7 SEC (9.7-13.0)
[2019-07-08 00:17] LABS: ACTIVATED PTT 28.4 SECONDS (25.2-36.5)
[2019-07-08] MEDS ORDERED: IRON SUCROSE INJECTION 200 MG in SODIUM CHLORIDE 90 ML IVPB ONE (04:00)
[2019-07-08] MEDS ORDERED: MELATONIN 5 MG TABLETS PO ONE (04:45)
[2019-07-08] MEDS ORDERED: ACETAMINOPHEN 500 MG TABLET (FP) PO ONE (04:46)
[2019-07-08 05:30] LABS: BASO % 0.9 % (0-2.0); EOS % 2.3 % (0-4.5); HEMOGLOBIN 8.1 GM/dL (10.7-15.3); LYMPH % 41.4 % (8-40); MEAN CELL VOLUME 61.9 fl (80-96); MEAN PLT VOLUME 9.3 fl (7.5-11.1); MONO % 8.4 % (3.8-10.2); PLATELET COUNT 417 K/MM3 (134-434); RBC 4.21 M/mm3 (3.60-5.2); RDW 29.5 % (11.6-15.6); WHITE BLOOD COUNT 6.1 K/mm3 (4.0-10.0)
[2019-07-08 05:56] LABS: MCH 19.2 pg (25.7-33.7)
[2019-07-08 06:32] LABS: EPI CELLS 1.7 /HPF (0-5/HPF); HYALINE CASTS 1 /lpf (0-8); URINE APPEARANCE CLEAR; URINE BACTERIA 2.4 /hpf (NEGATIVE); URINE BILIRUBIN NEGATIVE (NEGATIVE); URINE COLOR ORANGE; URINE GLUCOSE (UA) NEGATIVE (NEGATIVE); URINE KETONE NEGATIVE (NEGATIVE); URINE LEUK ESTERASE NEGATIVE (NEGATIVE); URINE NITRITE NEGATIVE (NEGATIVE); URINE PROTEIN NEGATIVE (NEGATIVE); URINE RBC 13 /hpf (0-4); URINE UROBILINOGEN 0.2 mg/dL (0.2-1.0); URINE WBC 1 /hpf (0-5)
[2019-07-08] MEDS ORDERED: ACETAMINOPHEN 1000 MG/100 ML VIAL (NON FORMULARY) IVPB PRN (09:34)
[2019-07-08] MEDS ORDERED: SODIUM CHLORIDE 500 ML IV STA (09:36)
--- NOTE | 2019-07-08 09:44 | PN ---
Teaching Attending Note Name of Resident: John Davalos ATTENDING PHYSICIAN STATEMENT I saw and evaluated the patient. I reviewed the resident's note and discussed the case with the resident. I agree with the resident's findings and plan as documented. SUBJECTIVE: Patient is a 48yo female presented with an abdominal pain with hx of gastric bypass around 17yrs ago . OBJECTIVE: Vital Signs Temperature 97.8 F 07/08/19 05:54 Pulse Rate 74 07/08/19 05:54 Respiratory Rate 20 07/08/19 09:00 Blood Pressure 112/62 07/08/19 05:54 O2 Sat by Pulse Oximetry (%) 99 07/08/19 09:00 GENERAL: The patient is awake, alert, and fully oriented, in no acute distress. HEAD: Normal with no signs of trauma. EYES: PERRL, extraocular movements intact, sclera anicteric, conjunctiva clear. ENT: Ears normal, oropharynx clear without exudates, moist mucous membranes. NECK: Trachea midline, full range of motion, supple. LUNGS: Breath sounds equal, clear to auscultation bilaterally, no wheezes, no crackles, no accessory muscle use. HEART: Regular rate and rhythm, S1, S2 without murmur, rub or gallop. ABDOMEN: Soft, nontender, nondistended, normoactive bowel sounds, no guarding, no rebound, no hepatosplenomegaly, no masses. EXTREMITIES: 2+ pulses, warm, well-perfused, no edema. NEUROLOGICAL: Cranial nerves II through XII grossly intact. Normal speech, gait not observed. PSYCH: Normal mood, normal affect. SKIN: Warm, dry, normal turgor, no rashes or lesions noted CBCD WBC 6.1 K/mm3 (4.0-10.0) 07/08/19 04:30 RBC 4.21 M/mm3 (3.60-5.2) 07/08/19 04:30 Hgb 8.1 GM/dL (10.7-15.3) L 07/08/19 04:30 Hct 26.0 % (32.4-45.2) L 07/08/19 04:30 MCV 61.9 fl (80-96) L D 07/08/19 04:30 MCHC 31.0 g/dl (32.0-36.0) L 07/08/19 04:30 RDW 29.5 % (11.6-15.6) H 07/08/19 04:30 Plt Count 417 K/MM3 (134-434) 07/08/19 04:30 MPV 9.3 fl (7.5-11.1) 07/08/19 04:30 CMP Sodium 137 mmol/L (136-145) 07/07/19 16:31 Potassium 4.1 mmol/L (3.5-5.1) 07/07/19 16:31 Chloride 107 mmol/L (98-107) 07/07/19 16:31 Carbon Dioxide 23 mmol/L (21-32) 07/07/19 16:31 Anion Gap 7 MMOL/L (8-16) L 07/07/19 16:31 BUN 15.6 mg/dL (7-18) 07/07/19 16:31 Creatinine 0.6 mg/dL (0.55-1.3) 07/07/19 16:31 Random Glucose 75 mg/dL (74-106) 07/07/19 16:31 Calcium 9.8 mg/dL (8.5-10.1) 07/07/19 16:31 Total Bilirubin 0.2 mg/dL (0.2-1) 07/07/19 16:31 AST 13 U/L (15-37) L 07/07/19 16:31 ALT 19 U/L (13-61) 07/07/19 16:31 Alkaline Phosphatase 106 U/L (45-117) 07/07/19 16:31 Total Protein 7.5 g/dl (6.4-8.2) 07/07/19 16:31 Albumin 3.7 g/dl (3.4-5.0) 07/07/19 16:31 Current Medications Generic Name Dose Route Start Last Admin Trade Name Freq PRN Reason Stop Dose Admin Acetaminophen 1,000 mg 07/08/19 09:34 Ofirmev Injection - IVPB 07/09/19 09:34 Q6H PRN PAIN Sodium Chloride 500 mls @ 500 mls/hr 07/08/19 09:36 Normal Saline - IV 07/08/19 10:35 ASDIR STA Home Medications Medication Instructions Recorded Metoprolol Tartrate [Lopressor -] 50 mg PO TID 07/25/16 Diltiazem HCl [Diltiazem ER] 120 mg PO DAILY 07/07/19 ASSESSMENT AND PLAN: Patient is a 48 year old female with PMHx of SVT, Anemia (Iron as well as B12 deficiency), gastric bypass (17 years ago), and hypoglycemia. She presented to the ER after she was found to have H/H of 6.2/24.[address] Rae and was sent to the ED. for further care. #Severe Iron deficiency anemia s/p Iron venofer IV 200mg this morning , next dose in am , follow with GI/Hemo onc as an outpatient. hem/onc consulted #Hx of gastric Bypass: 17 years ago, has not seen MD for a long time. #SOB due to Iron deficiency anemia , patient is comfortable now post transfusion #Hx of SVT resume home meds once confirmed DVT px: SCD CT abdomen/pelvis pending discharge in am
[2019-07-08 09:48] LABS: BILIRUBIN,TOTAL 0.8 mg/dL (0.2-1); BLOOD UREA NITROGEN 14.5 mg/dL (7-18); CALCIUM 9.2 mg/dL (8.5-10.1); CREATININE 0.5 mg/dL (0.55-1.3); POTASSIUM 4.2 mmol/L (3.5-5.1); TOT PROT 6.3 g/dl (6.4-8.2)
[2019-07-08 10:00] LABS: N-TERMINAL BNP 58.7 pg/ml (5-125)
[2019-07-08 11:57] LABS: PLATELET ESTIMATE NORMAL
--- NOTE | 2019-07-08 12:41 | EKG ---
Test Reason : Blood Pressure : / mmHG Vent. Rate : 104 BPM Atrial Rate : 104 BPM P-R Int : 136 ms QRS Dur : 072 ms QT Int : 312 ms P-R-T Axes : 052 026 027 degrees QTc Int : 410 ms SINUS TACHYCARDIA POSSIBLE LEFT ATRIAL ENLARGEMENT NONSPECIFIC T WAVE ABNORMALITY ABNORMAL ECG WHEN COMPARED WITH ECG OF 25-JUL-2016 14:44, NONSPECIFIC T WAVE ABNORMALITY, WORSE IN INFERIOR LEADS Confirmed by ISA GREEN, RADHA ([id number]) on 07/08/2019 12:40:57 PM Referred By: Confirmed By:RADHA MOSS MD
--- NOTE | 2019-07-08 13:48 | ECHO ---
Name: YUNG HERNANDEZ Exam:Adult Echocardiogram Study Date: 07/08/2019 11:33 AM Age: 48 yrs Height: 61 in Weight: 209 lb BSA: 1.9 m2 MMode/2D Measurements & Calculations IVSd: 1.2 cm Ao root diam: 2.4 cm LVIDd: 3.3 cm LA dimension: 3.8 cm LVIDs: 2.1 cm ACS: 1.8 cm LVPWd: 0.87 cm EDV(Teich): 43.6 ml LVOT diam: 1.8 cm ESV(Teich): 14.7 ml RV S Jared: 12.7 cm/sec Doppler Measurements & Calculations MV E max jared: 71.6 cm/sec Ao V2 max: 155.3 cm/sec MV A max jared: 62.2 cm/sec Ao max P.6 mmHg MV E/A: 1.2 Ao V2 mean: 117.3 cm/sec MV dec time: 0.15 sec Ao mean P.9 mmHg Ao V2 VTI: 37.2 cm SUSAN(I,D): 1.7 cm2 SUSAN(V,D): 1.8 cm2 LV V1 max P.0 mmHg MR max jared: 292.6 cm/sec LV V1 mean P.6 mmHg MR max P.2 mmHg LV V1 max: 111.6 cm/sec LV V1 mean: 73.7 cm/sec LV V1 VTI: 25.7 cm SV(LVOT): 63.4 ml TR max jared: 232.1 cm/sec TR max P.0 mmHg PA V2 max: 68.6 cm/sec Med Peak E' Jared: 9.0 cm/sec PA max P.9 mmHg Med E/e': 8.0 Lat Peak E' Jared: 9.3 cm/sec Lat E/e': 7.7 Procedure A complete two-dimensional transthoracic echocardiogram was performed (2D, M-mode, Doppler and color flow Doppler). Left Ventricle The left ventricular size, thickness and function are normal. The left ventricular ejection fraction is normal. Ejection Fraction = 60-65%. The left ventricular wall motion is normal. Right Ventricle The right ventricle is normal in size and function. Atria Normal left and right atrial size and function. Mitral Valve There is trace mitral regurgitation. Tricuspid Valve There is mild tricuspid regurgitation. Right ventricular systolic pressure is normal. Aortic Valve No hemodynamically significant valvular aortic stenosis. No aortic regurgitation is present. Pulmonic Valve There is no pulmonic valvular regurgitation. Great Vessels The aortic root is normal size. Pericardium/Pleura There is no pericardial effusion. Interpretation Summary The left ventricular size, thickness and function are normal The right ventricle is normal in size and function. There is mild tricuspid regurgitation. There is trace mitral regurgitation. MD Valente Trujillo 07/08/2019 01:48 PM
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
[2019-07-08] MEDS ORDERED: ACETAMINOPHEN 325 MG TABLET (FP) PO ONE (17:56)
[2019-07-08] MEDS ORDERED: ACETAMINOPHEN 325 MG TABLET (FP) PO PRN (19:56)
[2019-07-08] MEDS ORDERED: FLUTICASONE PROP 0.05% 16 GM NASAL SPRAY NS ONE ×2 (19:58→22:00)
--- NOTE | 2019-07-08 21:10 | CON.GI ---
Consult Consult Specialty:: GI Referred by:: Hospitalist Service Reason for Consultation:: Anemia - History of Present Illness Chief Complaint: Nasal congestion, fevers, malaise History of Present Illness: 48F admitted through [facility] after having been sent by PMD for evaluation of anemia. She was seeing that physician for upper respiratory complaints of nasal congestion, cough, fever. Called to evaluate anemia. Hgb 6.5 and microcytic. In review of the [facility] system she has a chronic microcytic anemia. She has had poor medical follow-up. She has a history of, by description, cee-en-y gastric bypass and has heavy menstrual periods. She describes her periods as going through 32 pads in two days, after which she spots for another few days. She was told of uterine fibroids and also of an abnormal PAP test a year ago that she has not as of yet followed up upon. She states injecting iron her mother gets from the [place] subcutaneously as well as getting B12 injections from her mother. She denies nausea, vomiting, change in bowel habits, rectal bleeding, melena. Stool specimen sent was negative for occult blood. She continues to experience nasal congestion. There is no family history of colorectal cancer or other GI malignancy. She has never had an EGD or colonoscopy. A CT scan of the abdomen and pelvis was performed today. As above, she denies any focal GI complaints. - History Source History Provided By: Patient Limitations to Obtaining History: No Limitations - Past Medical History Hepatobiliary: Yes: Cholelithiasis Reproductive: Yes: Fibroids, Other (menorrhagia) - Past Surgical History Additional Surgical History: Cee-en-Y gastric bypass, "upper body lift after gastric bypass that included abdominoplasty", ventral hernia repair, Right TKR following an accident - Alcohol/Substance Use Hx Alcohol Use: No History of Substance Use: reports: None - Smoking History Smoking history: Never smoked Have you smoked in the past 12 months: No - Social History Usual Living Arrangement: Alone (Spouse travels out of country frequently) ADL: Independent Occupation: Unemployed. 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 Father: Cardiac valve replacement. 1 brother: cerebral palsy. 1 sister: learning disability. 2 sons, 1 daughter: healthy. No family history of colorectal cancer or other GI malignancy Review of Systems - Review of Systems Constitutional: reports: Chills, Fever Respiratory: reports: Cough, Wheezing Musculoskeletal: reports: Joint Pain Physical Exam-GI Vital Signs: Vital Signs Temperature 97.6 F 07/08/19 17:57 Pulse Rate 78 07/08/19 17:57 Respiratory Rate 20 07/08/19 20:39 Blood Pressure 108/64 07/08/19 17:57 O2 Sat by Pulse Oximetry (%) 98 07/08/19 20:39 Constitutional: Yes: Calm Eyes: No: Sclera Icterus HENT: Yes: Nasal Congestion Cardiovascular: Yes: Regular Rate and Rhythm. No: Murmur Respiratory: Yes: CTA Bilaterally Gastrointestinal Inspection: Yes: Scars (Midline vertical abdominal surgical scar, lower horizontal abdominoplasty scar). No: Distention ...Auscultate: Yes: Normoactive Bowel Sounds ...Palpate: Yes: Soft. No: Hepatomegaly, Splenomegaly, Tenderness ...Percussion: No: Tympanitic ...Rectal Exam: Yes: Deferred (Patient actively still menstruating) Edema: LLE: 2+, RLE: 2+ Neurological: Yes: Alert Labs: CBC, BMP 07/08/19 04:30 07/08/19 08:37 INR, PTT INR 0.99 (0.83-1.09) 07/07/19 23:50 Problem List - Problems (1) Anemia Assessment/Plan: Profound iron deficiency anemia without focal GI complaints. Has gastric bypass anatomy, that can lead to iron deficiency if not supplementing properly. She also does describe extremely heavy menses, uterine fibroids and an abnormal PAP from a year ago that she has not as of yet followed up. I suspect that this is contributing greatly to her iron loss. Needs regulatory compliance specialist evaluation. States that she is seeing regulatory compliance specialist on friday as an outpatient. Will likely need continued iron infusions as outpatient given such low iron stores and the fact that she has gastric bypass anatomy. Check folate level. hematology has been consulted - Advised continued GI work-up as an outpatient when her nasal congestion and upper respiratory complaints have resolved so as to minimize risk of anesthesia. Office information provided in discharge plan. CT scan of the A/P was performed. Follow-up results prior to discharge Code(s): D64.9 - ANEMIA, UNSPECIFIED Qualifiers: Anemia type: iron deficiency Iron deficiency anemia type: other iron deficiency Qualified Code(s): D50.8 - Other iron deficiency anemias
[2019-07-08] MEDS ORDERED: MELATONIN 5 MG TABLETS PO PRN (22:00)
[2019-07-09 08:35] LABS: HEMATOCRIT 27.8 % (32.4-45.2); HEMOGLOBIN 8.5 GM/dL (10.7-15.3); MCHC 30.5 g/dl (32.0-36.0); MEAN CELL VOLUME 62.3 fl (80-96); MEAN PLT VOLUME 9.3 fl (7.5-11.1); PLATELET COUNT 407 K/MM3 (134-434); RBC 4.46 M/mm3 (3.60-5.2); RDW 30.2 % (11.6-15.6); WHITE BLOOD COUNT 5.4 K/mm3 (4.0-10.0)
[2019-07-09 09:00] LABS: ALBUMIN 3.4 g/dl (3.4-5.0); BILIRUBIN,TOTAL 0.3 mg/dL (0.2-1); BLOOD UREA NITROGEN 10.8 mg/dL (7-18); CALCIUM 9.6 mg/dL (8.5-10.1); CREATININE 0.5 mg/dL (0.55-1.3); MAGNESIUM 2.3 mg/dL (1.8-2.4); PHOSPHOROUS 3.3 mg/dL (2.5-4.9); POTASSIUM 4.3 mmol/L (3.5-5.1); TOT PROT 6.9 g/dl (6.4-8.2)
--- NOTE | 2019-07-09 09:20 | PN ---
Teaching Attending Note Name of Resident: John Davalos ATTENDING PHYSICIAN STATEMENT I saw and evaluated the patient. I reviewed the resident's note and discussed the case with the resident. I agree with the resident's findings and plan as documented. SUBJECTIVE: Patient is comfortable with no acute distress. Vital Signs Temperature 97.6 F 07/09/19 05:36 Pulse Rate 74 07/09/19 05:36 Respiratory Rate 20 07/09/19 05:36 Blood Pressure 110/68 07/09/19 05:36 O2 Sat by Pulse Oximetry (%) 98 07/08/19 20:39 GENERAL: The patient is awake, alert, and fully oriented, in no acute distress. HEAD: Normal with no signs of trauma. EYES: PERRL, extraocular movements intact, sclera anicteric, conjunctiva clear. ENT: Ears normal, oropharynx clear without exudates, moist mucous membranes. NECK: Trachea midline, full range of motion, supple. LUNGS: Breath sounds equal, clear to auscultation bilaterally, no wheezes, no crackles, no accessory muscle use. HEART: Regular rate and rhythm, S1, S2 without murmur, rub or gallop. ABDOMEN: Soft, nontender, nondistended, normoactive bowel sounds, no guarding, no rebound, no hepatosplenomegaly, no masses. EXTREMITIES: 2+ pulses, warm, well-perfused, no edema. NEUROLOGICAL: Cranial nerves II through XII grossly intact. Normal speech, gait not observed. PSYCH: Normal mood, normal affect. SKIN: Warm, dry, normal turgor, no rashes or lesions noted CBCD WBC 5.4 K/mm3 (4.0-10.0) 07/09/19 07:58 RBC 4.46 M/mm3 (3.60-5.2) 07/09/19 07:58 Hgb 8.5 GM/dL (10.7-15.3) L 07/09/19 07:58 Hct 27.8 % (32.4-45.2) L 07/09/19 07:58 MCV 62.3 fl (80-96) L 07/09/19 07:58 MCHC 30.5 g/dl (32.0-36.0) L 07/09/19 07:58 RDW 30.2 % (11.6-15.6) H 07/09/19 07:58 Plt Count 407 K/MM3 (134-434) 07/09/19 07:58 MPV 9.3 fl (7.5-11.1) 07/09/19 07:58 CMP Sodium 138 mmol/L (136-145) 07/09/19 07:58 Potassium 4.3 mmol/L (3.5-5.1) 07/09/19 07:58 Chloride 107 mmol/L (98-107) 07/09/19 07:58 Carbon Dioxide 25 mmol/L (21-32) 07/09/19 07:58 Anion Gap 6 MMOL/L (8-16) L 07/09/19 07:58 BUN 10.8 mg/dL (7-18) 07/09/19 07:58 Creatinine 0.5 mg/dL (0.55-1.3) L 07/09/19 07:58 Random Glucose 82 mg/dL (74-106) 07/09/19 07:58 Calcium 9.6 mg/dL (8.5-10.1) 07/09/19 07:58 Total Bilirubin 0.3 mg/dL (0.2-1) 07/09/19 07:58 AST 10 U/L (15-37) L 07/09/19 07:58 ALT 16 U/L (13-61) 07/09/19 07:58 Alkaline Phosphatase 100 U/L (45-117) 07/09/19 07:58 Total Protein 6.9 g/dl (6.4-8.2) 07/09/19 07:58 Albumin 3.4 g/dl (3.4-5.0) 07/09/19 07:58 Home Medications Medication Instructions Recorded Metoprolol Tartrate [Lopressor -] 50 mg PO TID 07/25/16 Diltiazem HCl [Diltiazem ER] 120 mg PO DAILY 07/07/19 Current Medications Generic Name Dose Route Start Last Admin Trade Name Freq PRN Reason Stop Dose Admin Acetaminophen 650 mg 07/08/19 19:56 07/08/19 22:45 Tylenol - PO 650 mg Q6H PRN Administration Fever Diltiazem HCl 120 mg 07/09/19 10:00 07/09/19 09:09 Cardizem Cd - PO 120 mg DAILY CLARITZA Administration Melatonin 5 mg 07/08/19 22:00 07/08/19 22:45 Melatonin PO 5 mg HS PRN Administration INSOMNIA Home Medications Medication Instructions Recorded Diltiazem HCl [Diltiazem 24Hr ER] 120 mg PO DAILY 07/07/19 Docusate Sodium [Colace] 200 mg PO DAILY 30 Days #30 capsule 07/09/19 Ferrous Sulfate [Feosol] 325 mg PO TID 30 Days #90 tablet 07/09/19 ASSESSMENT AND PLAN: Patient is a 48 year old female with PMHx of SVT, Anemia (Iron as well as B12 deficiency), gastric bypass (17 years ago), and hypoglycemia. She presented to the ER after she was found to have H/H of 6.2/24.[address] Rae and was sent to the ED. for further care. #Severe Iron deficiency anemia s/p Iron venofer IV 200mg yesterday and today , follow with GI/Hemo onc as an outpatient. hem/onc consulted #Hx of gastric Bypass: 17 years ago, has not seen MD for a long time. she will see her primary by next week #SOB due to Iron deficiency anemia , patient is comfortable now post transfusion , will discharge her with home iron supplement #Hx of SVT resume home meds once confirmed DVT px: SCD CT abdomen/pelvis reviewed, no acute pathology discharge patient
[2019-07-09] MEDS ORDERED: PATIENT'S OWN MEDICATION (NON-FORMULARY) (Diltiazem Hcl [Diltiazem 24hr Er] 120 MG) PO SCH (10:00)
[2019-07-09] MEDS ORDERED: IRON SUCROSE INJECTION 200 MG in SODIUM CHLORIDE 90 ML IVPB ONE (13:15)
[2019-07-09 15:27] VITALS: BP 109/49; PULSE 72; TEMP 97.3
--- NOTE | 2019-07-09 16:04 | DS ---
Physical Exam: SUBJECTIVE: Patient seen and examined at bedside. There were no acute events overnight. This AM she offers no new complaints. OBJECTIVE: Vital Signs Period Temp Pulse Resp BP Sys/Gonzalez Pulse Ox Last 24 Hr 97.3 F-97.6 F 72-78 20-20 108-110/49-68 98 PHYSICAL EXAM GENERAL: AOx3, in no acute distress. HEAD: NCAT EYES: JIAN, EOMI, conjunctiva clear. ENT: Ears normal, nares patent, oropharynx clear without exudates. Moist mucous membranes. NECK: Normal range of motion, supple without lymphadenopathy, JVD, or masses. LUNGS: CTAB. No wheezes, and no crackles. No accessory muscle use. HEART: RRR s1 s2 ABDOMEN: Obese, soft, BS present in all 4 quadrants, non-distended, no JVD, MUSCULOSKELETAL: No bony deformities or tenderness. No CVA tenderness. UPPER EXTREMITIES: 2+ pulses, warm, well-perfused. No cyanosis. No clubbing. No peripheral edema. LOWER EXTREMITIES: 2+ pulses, warm, well-perfused. No calf tenderness. No peripheral edema. NEUROLOGICAL: No focal deficits. Cranial nerves II-XII intact. Normal speech. Gait not appreciated. PSYCHIATRIC: Cooperative. Good eye contact. Appropriate mood and affect. SKIN: Warm, dry, normal turgor, no rashes or lesions noted, normal capillary refill. LABS 07/07/19 07/09/19 07/09/19 16:31 07:58 07:58 WBC 5.4 RBC 4.46 Hgb 8.5 L Hct 27.8 L MCV 62.3 L MCH 19.0 L MCHC 30.5 L RDW 30.2 H Plt Count 407 MPV 9.3 Haptoglobin 77 Sodium 138 Potassium 4.3 Chloride 107 Carbon Dioxide 25 Anion Gap 6 L BUN 10.8 Creatinine 0.5 L Est GFR (CKD-EPI)AfAm 134.52 Est GFR (CKD-EPI)NonAf 116.07 Random Glucose 82 Calcium 9.6 Phosphorus 3.3 Magnesium 2.3 Total Bilirubin 0.3 AST 10 L ALT 16 Alkaline Phosphatase 100 Total Protein 6.9 Albumin 3.4 HOSPITAL COURSE: Date of Admission:07/07/19 48 y/o female PMH of SVT, anemia (iron and B12 deficiency), gastric bypass (2002 ) sent to ED from PCP for hb 6.2. She is s/p 2 units PRBC and venofer. She was advised to follow with GI/Hemo onc as an outpatient. FOBT NEG. CT ab/pelv to assess kia en y found to have left hepatic lobe cyst and fibroid uterus. Has gastric bypass anatomy, which can lead to iron deficiency if not supplementing properly. 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 For her SVT. cont. home regimen: diltiazem 120 mg po qd Date of Discharge: 07/09/19 Minutes to complete discharge: 40 Discharge Summary Problems reviewed: Yes Reason For Visit: ANEMIA Current Active Problems Fibroid (Acute) Menorrhagia (Chronic) Condition: Stable - Instructions Diet, Activity, Other Instructions: YOUR VISIT You came to the hospital because you were found to have low hemoglobin, you received blood transfusions and iron treatments while in the hospital. You were seen by gastroenterology during this admission. You are now stable and may return home. MEDICATIONS Please continue to take your medications as prescribed. - Diltiazem 120 mg by mouth every day. Begin taking: - Ferrous Sulfate 325mg 3x per day with food, Tke the stool softener with it or at bedtime 200mg per day - Colace 200mg at bedtime ADDITIONAL CARE Please make an appointment to see your primary care provider, Dr. Bean, 1 week from today. Please make an appointment to see a bariatric surgeon in 1 week. A referral has to Dr. Fine has been provided. Please make an appointment to see a slicing machine tender in 1 week. A referral has to Dr. Isaac has been provided. Please make an appointment to see a strategic marketing manager in 1 week. A referral has to Dr. Leo has been provided. Please make an appointment to see an street inspector in 1 week. A referral has to Dr. Purcell has been provided. Your CT revealed Fibroids which may be contributing to your symptoms. ADDITIONAL INFORMATION Please call 911 or come directly to the emergency department if you experience unusual headache, vision change, shortness of breath, chest pain, numbness, tingling, loss of alertness/awareness, loss of function, unusual bleeding or any alarming symptoms. Referrals: Isaiah Fine MD [Staff Physician] - 1 Week Jamarcus Isaac DO [Staff Physician] - 1 Week Danii Purcell MD [Staff Physician] - 1 Week Mook Leo MD [Staff Physician] - 1 Week Disposition: HOME - Home Medications Comprehensive Discharge Medication List: Ambulatory Orders Diltiazem HCl [Diltiazem 24Hr ER] 120 mg PO DAILY 07/07/19 Docusate Sodium [Colace] 100 mg PO DAILY 30 Days #30 capsule 07/09/19 Ferrous Sulfate [Feosol] 325 mg PO TID 30 Days #90 tablet 07/09/19 This patient is new to me today: No Emergency Visit: No Critical Care patient: No - Discharge Referral Referred to [facility] Med P.C[facility] No ATTENDING PHYSICIAN STATEMENT I saw and evaluated the patient. I reviewed the resident's note and discussed the case with the resident. I agree with the resident's findings and plan as documented. SUBJECTIVE: OBJECTIVE: ASSESSMENT AND PLAN:
== END 2019-07-09 18:25 | disposition home or self-care (01) | DRG 663 ==
LOC: JER 15:49 → JERBED 21:10 → J6S 07-08
PROVIDERS: ADMIT Internal Medicine; ATTEND Internal Medicine
PROC: 30233N1 Transfusion of Nonautologous Red Blood Cells into Peripheral Vein, Percutaneous Approach (ICD-10-PCS; principal; 2019-07-07)
DX: D50.9 Iron deficiency anemia, unspecified (principal); I47.1 Supraventricular tachycardia; E55.9 Vitamin D deficiency, unspecified; E53.8 Deficiency of other specified B group vitamins; R73.03 Prediabetes; Z98.84 Bariatric surgery status; E66.9 Obesity, unspecified; Z68.39 Body mass index [BMI] 39.0-39.9, adult; N92.0 Excessive and frequent menstruation with regular cycle; D25.9 Leiomyoma of uterus, unspecified
CPT/HCPCS: 36415; 36430; 36511; 71046-TC-FY; 74177-TC; 80053; 81003; 82272; 82607; 82728; 82962; 83010; 83540; 83550; 83615; 83735; 83880; 84100; 85025; 85027; 85044; 85610; 85730; 86850; 86900; 86901; 86922; 87804; 93005; 93010; 93306-TC; 99285-25; J0131; J1756; P9038; P9058; Q9967